=== PATIENT | male | born 1990 | race Caucasian/White ===

== ENCOUNTER 2016-12-14 17:02 | Emergency (ER) | payer SELFPAY ==
--- NOTE | 2016-12-14 18:23 | DIAGNOSTIC IMAGING REPORT ---
PROCEDURE: XR FINGER - LEFT INDICATION: TRAUMA/INJURY TECHNIQUE: A P hand and two views of the left second digit. COMPARISON: None. FINDINGS: Comminuted fracture of the distal tuft of the left index finger. Normal joint spaces. No radiopaque foreign bodies. IMPRESSION: 1. Comminuted fracture left second finger distal tuft
--- NOTE | 2016-12-14 18:51 | ED ORDER SUMMARY ---
..... Patient: TIFFANY LEDEZMA OrderSheet [facility] VisitID: [id number] [place] [address] 26y, M Registration Date/Time: 12/14/2016 ORDER SHEET Weight: 81.6 kg (stated) Allergies: No Known Drug Allergy GENERAL ORDERS: Finger Left (2) Urgent (17:31 12/14/2016 HBivens A.R.N.P.) (Ack 17:43 TBergley) (19:06 RFay) Splint (Finger) (Left) (Index) (4 prong if we have it) (18:44 12/14/2016 HBivens A.R.N.P.) (Ack 18:49 TBergley) (19:16 LSullivan R.N.) Dress Wounds (18:44 12/14/2016 HBivens A.R.N.P.) (Ack 18:49 TBergley) (19:16 LSullivan R.N.) MEDICATION ORDERS: Tdap IM 0.5 mL (NOW, per protocol) (17:27 12/14/2016 LSullivan R.N. per protocol) (17:29 LSullivan R.N.) Ancef IM 1 gm (NOW) (18:43 12/14/2016 HBivens A.R.N.P.) (19:00 LSullivan R.N.) IV FLUIDS: ORDER SHEET NOTES: [Electronically signed by Laura Pérez R.N. (19:18 12/14/2016)] [Electronically signed by Vanessa Edge.R.N.P. (19:19 12/14/2016)] [Electronically signed by Dalia Lai R.N. (10:41 12/16/2016)] [Electronically locked/signed by Laura Pérez R.N. (19:18 12/14/2016)]
--- NOTE | 2016-12-14 18:51 | ED NURSING NOTES ---
Clinical Report - Nurses [facility] [place] [address] 12/14/2016 17:03 Patient: TIFFANY LEDEZMA TRIAGE Triage time 17:12. Acuity: LEVEL 4. Chief Complaint: INJURY TO LEFT HAND. INJURY TO THE RIGHT INDEX FINGER and LEFT INDEX FINGER. Alert. --17:15 Laura Pérez R.N. 17:10 12/14/16. BP: 142/80. HR: 83. RR: 18. O2 saturation: 96%. Temp: 98.3 F. Pain level now: 02/17. --17:15 Laura Pérez R.N. Weight: 81.6 kg stated. Height/Length: 73 inches Per Patient. BMI: 23.7. --17:14 Laura Pérez R.N. Medications None. --17:14 Laura Pérez R.N. Allergies No Known Drug Allergy. --17:14 Laura Pérez R.N. History Arrived by private vehicle. Historian: patient. Primary physician (none). ( Pt drilled a hole through his index finger, above knuckle area, pt does not think it went through the bone, pt placed dressing on it, and some powder to stop bleeding). This occurred today (at about 11 AM). Treatment STATUARY PAINTER: None. PAST MEDICAL HX: Negative. Tetanus status: more than 5 years ago. SURGERY HX: No history of previous surgery. SOCIAL HX: Light tobacco smoker (cigarette)- less than 1/2 a pack per day. Alcohol use; consumes two beers a week. No drug use. NUTRITIONAL RISK ASSESSMENT: The nutritional risk assessment revealed no deficiencies. --17:15 Laura Pérez R.N. PROBLEMS: no known problems. ADDITIONAL SURGERIES: no known surgeries. Interventions ID band on patient. To room. --17:15 Laura Pérez R.N. PHYSICAL ASSESSMENT 17:15 12/14/16. GENERAL / NEURO / PSYCH: Oriented X 4. Alert. Appears in no acute distress. --17:15 Laura Pérez R.N. NURSING PROGRESS NOTES 17:15 12/14/16. Patient identifiers checked. Call light placed in reach. Bed placed in lowest position. Brakes of bed on. Patient ready for evaluation- chart flagged. --17:15 Laura Pérez R.N. 17:29 12/14/2016 TDAP IM 0.5 mL given. (Lot#: [id number], expiration date: 08/07/2018, [employer] Hand: sanofi pasteur). Confirmed 5 rights. Vaccine information statement provided to the patient. --17:29 Laura Pérez R.N. 17:35 12/14/16. Wound cleansed with water, Betadine and Hibiclens. --17:35 Laura Pérez R.N. 19:00 12/14/2016 Ancef (CeFAZolin Sodium) IM 1 gm given. Given in the left gluteus ofe. Allergies verified and confirmed 5 rights. --19:00 Laura Pérez R.N. 19:04. Applied sterile dressing consisting of gauze, following the application of antibiotic ointment (bacitracin). Secured with tape and tube gauze. --19:18 Laura Pérez R.N. DISPOSITION / DISCHARGE Departure time: 1911. Condition at departure: improved. No learning barriers present. Discharge instructions provided and reviewed with the patient. Reviewed medication(s) information. Prescription(s) given to the patient. Reviewed referral to family practice and an orthopedic surgeon for followup. Verbalized understanding. Written instructions provided. The patient was discharged home. He left the Emergency Department ambulatory and via private vehicle. --19:15 Laura Pérez R.N. 19:12 12/14/16. BP: 121/64. HR: 78. RR: 18. O2 saturation: 99%. Pain level now: 01/17. --19:15 Laura Pérez R.N. ( Aluminum foam splint applied by [employer], taped in place.). --19:19 Laura Pérez R.N. Locked/Released at 12/16/2016 10:41 by Dalia Lai R.N.
--- NOTE | 2016-12-14 18:51 | ED CLINICAL REPORT ---
Clinical Report - Physicians/Mid Levels [facility] [address] [place] [address] 12/14/2016 17:03 Patient: TIFFANY LEDEZMA Time Seen: 17:14; initial patient contact, initial documentation, patient care assumed. Arrived- By private vehicle. Historian- patient. HISTORY OF PRESENT ILLNESS Chief Complaint: Injury to the left index finger. The injury happened today. The patient sustained a puncture wound. (drill). Occurred at home. Patient is not experiencing pain. Patient denies injury to the head or neck. No other injury. ( came in because it continues to bleed, wound washed and bleeding powder used, one side stopped but other side started to ooze again). REVIEW OF SYSTEMS No swelling, tingling, numbness, weakness or foreign body. No skin laceration. All systems otherwise negative, except as recorded above. PAST HISTORY Negative. The patient's dominant hand is the right. Last tetanus immunization was more than 5 years ago. SOCIAL HISTORY Light tobacco smoker. Regular alcohol use; consumes two beers a week. No drug use. No recent travel. Is a local resident. FAMILY HISTORY No significant family medical history. ADDITIONAL NOTES The nursing notes have been reviewed with agreement regarding the chief complaint, HPI, ROS, PMH and patient medications and allergies. PHYSICAL EXAM Vital Signs: 12/14/2016 17:10 BP: 142/80. HR: 83. RR: 18. O2 saturation: 96%. Temp: 98.3 F. Pain level now: 4/10. Have been reviewed as normal and appear to be correct. Appearance: Alert. Oriented X3. No acute distress. Head: Head atraumatic. Eyes: Pupils equal, round and reactive to light. Eyes normal inspection. Respiratory: No respiratory distress. Skin: Skin warm and dry. Skin intact. Extremities: Hand injury present. Tip of left index finger: multiple puncture wounds (entry wound on finger pad, exit wound thru lateral side of nail bed, quick powder noted on wound). No erythema, tenderness, swelling, laceration of tip of left index finger or foreign body. No subungual hematoma, nail avulsion, exposed bone or loss of the nail bed on the left index finger or tip amputation of the left index finger. No wrist injury. Hand and wrist exam otherwise negative. Extremities otherwise negative. Neuro, Vascular and Tendons: Vascular status intact. Sensation intact. Motor intact. Tendon function intact. Neuro: Oriented X 3. No motor deficit. No sensory deficit. Note: isolated injury to finger. LABS, X-RAYS, AND EKG X-Rays: Left digit(s). Lt UE Digits X-ray: (IMPRESSION: 1. Comminuted fracture left second finger distal tuft Electronically Final signed by:Raul Johns MD 12/14/2016 6:23:10 PM). The X-rays were interpreted by the radiologist and contemporaneously by me. PROGRESS AND PROCEDURES Course of Care: 183. pt still denying any pain. Patient counseled in person regarding the patient's stable condition, test results and diagnosis. 18:38. Differential Diagnosis: Other possible considerations: pw, fb, fx, nail/skin avulsion. Above considerations are based on history, physical exam and X-Ray data. Differential diagnosis was discussed with patient. Disposition: Discharged home in good and improved condition (18:51). Condition: good and stable. CLINICAL IMPRESSION Open nondisplaced distal phalanx fracture of the left index finger. No angulated fracture of the phalanx. Single deep puncture wound to the left index finger. No puncture wound with foreign body present, infected puncture wound or left fingernail injury. Not penetrating into body cavity. Treatment of puncture wound not delayed. INSTRUCTIONS Wear aluminum splint. Protect wound and keep wound area clean. Change dressing twice daily. Soak in warm soapy water twice daily. Apply bacitracin twice daily. Warnings: COMPLICATIONS: Complications from this condition include: possible infection and possible foreign body remaining in the wound. Future problems may include infection. INFECTION: Watch for signs of infection (increasing heat and redness, pus-like drainage, swelling, or increased pain). Return or see your doctor if these signs occur. It is important to follow up with a physician for further evaluation and treatment. INFECTION: Watch for signs of infection (increasing heat and redness, pus-like drainage, swelling, or increased pain). Return or see your doctor if these signs occur. TETANUS: You were given a tetanus shot during your visit. Make a note for future reference. Prescription Medications: Cephalexin 500 mg: take 1 capsule orally every 8 hours for 10 days. No refill. [place] 5 mg / 325 mg tablets: take 1 orally as needed. Dispense ten (10). No refill. Motrin 800 mg tablets: take 1 tablet orally every 8 hours as needed for pain. Dispense thirty (30). No refills. Substitution is permissible. Understanding of the discharge instructions verbalized by patient. Follow-up with: Teodoro Garcia MD, Orthopedic Surgeon, , [address], , [place], [address] Follow up in about three days even if well and for wound check. Call for an appointment. Summary of care provided to patient. (Electronically signed by Vanessa Edge A.R.N.P. 12/14/2016 19:19)
--- NOTE | 2016-12-14 18:51 | ED ORDER SUMMARY ---
..... Patient: TIFFANY LEDEZMA OrderSheet [facility] VisitID: [id number] [place] [address] 26y, M Registration Date/Time: 12/14/2016 ORDER SHEET Weight: 81.6 kg (stated) Allergies: No Known Drug Allergy GENERAL ORDERS: Finger Left (2) Urgent (17:31 12/14/2016 HBivens A.R.N.P.) (Ack 17:43 TBergley) (19:06 RFay) Splint (Finger) (Left) (Index) (4 prong if we have it) (18:44 12/14/2016 HBivens A.R.N.P.) (Ack 18:49 TBergley) (19:16 LSullivan R.N.) Dress Wounds (18:44 12/14/2016 HBivens A.R.N.P.) (Ack 18:49 TBergley) (19:16 LSullivan R.N.) MEDICATION ORDERS: Tdap IM 0.5 mL (NOW, per protocol) (17:27 12/14/2016 LSullivan R.N. per protocol) (17:29 LSullivan R.N.) Ancef IM 1 gm (NOW) (18:43 12/14/2016 HBivens A.R.N.P.) (19:00 LSullivan R.N.) IV FLUIDS: ORDER SHEET NOTES: [Electronically signed by Laura Pérez R.N. (19:18 12/14/2016)] [Electronically signed by Vanessa Edge.R.N.P. (19:19 12/14/2016)] [Electronically signed by Dalia Lai R.N. (10:41 12/16/2016)] [Electronically locked/signed by Laura Pérez R.N. (19:18 12/14/2016)]
--- NOTE | 2016-12-14 18:51 | ED NURSING NOTES ---
Clinical Report - Nurses [facility] [place] [address] 12/14/2016 17:03 Patient: TIFFANY LEDEZMA TRIAGE Triage time 17:12. Acuity: LEVEL 4. Chief Complaint: INJURY TO LEFT HAND. INJURY TO THE RIGHT INDEX FINGER and LEFT INDEX FINGER. Alert. --17:15 Laura Pérez R.N. 17:10 12/14/16. BP: 142/80. HR: 83. RR: 18. O2 saturation: 96%. Temp: 98.3 F. Pain level now: 02/17. --17:15 Laura Pérez R.N. Weight: 81.6 kg stated. Height/Length: 73 inches Per Patient. BMI: 23.7. --17:14 Laura Pérez R.N. Medications None. --17:14 Laura Pérez R.N. Allergies No Known Drug Allergy. --17:14 Laura Pérez R.N. History Arrived by private vehicle. Historian: patient. Primary physician (none). ( Pt drilled a hole through his index finger, above knuckle area, pt does not think it went through the bone, pt placed dressing on it, and some powder to stop bleeding). This occurred today (at about 11 AM). Treatment WORK FORCE ADVISOR: None. PAST MEDICAL HX: Negative. Tetanus status: more than 5 years ago. SURGERY HX: No history of previous surgery. SOCIAL HX: Light tobacco smoker (cigarette)- less than 1/2 a pack per day. Alcohol use; consumes two beers a week. No drug use. NUTRITIONAL RISK ASSESSMENT: The nutritional risk assessment revealed no deficiencies. --17:15 Laura Pérez R.N. PROBLEMS: no known problems. ADDITIONAL SURGERIES: no known surgeries. Interventions ID band on patient. To room. --17:15 Laura Pérez R.N. PHYSICAL ASSESSMENT 17:15 12/14/16. GENERAL / NEURO / PSYCH: Oriented X 4. Alert. Appears in no acute distress. --17:15 Laura Pérez R.N. NURSING PROGRESS NOTES 17:15 12/14/16. Patient identifiers checked. Call light placed in reach. Bed placed in lowest position. Brakes of bed on. Patient ready for evaluation- chart flagged. --17:15 Laura Pérez R.N. 17:29 12/14/2016 TDAP IM 0.5 mL given. (Lot#: [id number], expiration date: 08/07/2018, [employer] Actor: sanofi pasteur). Confirmed 5 rights. Vaccine information statement provided to the patient. --17:29 Laura Pérez R.N. 17:35 12/14/16. Wound cleansed with water, Betadine and Hibiclens. --17:35 Laura Pérez R.N. 19:00 12/14/2016 Ancef (CeFAZolin Sodium) IM 1 gm given. Given in the left gluteus ofe. Allergies verified and confirmed 5 rights. --19:00 Laura Pérez R.N. 19:04. Applied sterile dressing consisting of gauze, following the application of antibiotic ointment (bacitracin). Secured with tape and tube gauze. --19:18 Laura Pérez R.N. DISPOSITION / DISCHARGE Departure time: 1911. Condition at departure: improved. No learning barriers present. Discharge instructions provided and reviewed with the patient. Reviewed medication(s) information. Prescription(s) given to the patient. Reviewed referral to family practice and an orthopedic surgeon for followup. Verbalized understanding. Written instructions provided. The patient was discharged home. He left the Emergency Department ambulatory and via private vehicle. --19:15 Laura Pérez R.N. 19:12 12/14/16. BP: 121/64. HR: 78. RR: 18. O2 saturation: 99%. Pain level now: 01/17. --19:15 Laura Pérez R.N. ( Aluminum foam splint applied by [email or web address], taped in place.). --19:19 Laura Pérez R.N. Locked/Released at 12/16/2016 10:41 by Dalia Lai R.N.
--- NOTE | 2016-12-16 10:41 | ED MAR SUMMARY ---
..... Medication Administration Record [facility] [address] [place] [address] Patient: TIFFANY LEDEZMA Visit ID: [id number] 26y, M Weight: 81.6 kg Height/Length: 73 in BMI: 23.7 ALLERGIES: No Known Drug Allergy Given 17:29 12/14/2016 Laura Pérez, RJessicaN. Medication Administered: TDAP [IM], Dose: 0.5 mL IM. Medication Ordered: Tdap IM 0.5 mL (NOW, per protocol). Given 19:00 12/14/2016 Laura Pérez, R.N. Medication Administered: ANCEF [IM] (CEFAZOLIN SODIUM), Dose: 1 gm IM. Medication Ordered: Ancef IM 1 gm (NOW).
--- NOTE | 2016-12-16 10:41 | ED MAR SUMMARY ---
..... Medication Administration Record [facility] [address] [place] [address] Patient: TIFFANY LEDEZMA Visit ID: [id number] 26y, M Weight: 81.6 kg Height/Length: 73 in BMI: 23.7 ALLERGIES: No Known Drug Allergy Given 17:29 12/14/2016 Laura Pérez, RJessicaN. Medication Administered: TDAP [IM], Dose: 0.5 mL IM. Medication Ordered: Tdap IM 0.5 mL (NOW, per protocol). Given 19:00 12/14/2016 Laura Pérez, R.N. Medication Administered: ANCEF [IM] (CEFAZOLIN SODIUM), Dose: 1 gm IM. Medication Ordered: Ancef IM 1 gm (NOW).
--- NOTE | 2016-12-16 10:41 | ED DISCHARGE INSTRUCTIONS ---
Patient: TIFFANY LEDEZMA General Instructions [facility] VisitID: [id number] [place] [address] 26y, M Registration Date/Time: 12/14/2016 Open nondisplaced distal phalanx fracture of the left index finger. No angulated fracture of the phalanx. Single deep puncture wound to the left index finger. No puncture wound with foreign body present, infected puncture wound or left fingernail injury. Not penetrating into body cavity. Treatment of puncture wound not delayed. INSTRUCTIONS Wear aluminum splint. Protect wound and keep wound area clean. Change dressing twice daily. Soak in warm soapy water twice daily. Apply bacitracin twice daily. Warnings: COMPLICATIONS: Complications from this condition include: possible infection and possible foreign body remaining in the wound. Future problems may include infection. INFECTION: Watch for signs of infection (increasing heat and redness, pus-like drainage, swelling, or increased pain). Return or see your doctor if these signs occur. It is important to follow up with a physician for further evaluation and treatment. INFECTION: Watch for signs of infection (increasing heat and redness, pus-like drainage, swelling, or increased pain). Return or see your doctor if these signs occur. TETANUS: You were given a tetanus shot during your visit. Make a note for future reference. Prescription Medications: Cephalexin 500 mg: take 1 capsule orally every 8 hours for 10 days. No refill. [place] 5 mg / 325 mg tablets: take 1 orally as needed. Dispense ten (10). No refill. Motrin 800 mg tablets: take 1 tablet orally every 8 hours as needed for pain. Dispense thirty (30). No refills. Substitution is permissible. Understanding of the discharge instructions verbalized by patient. Follow-up with: Teodoro Garcia MD, Orthopedic Surgeon, , [id number], , [place] [phone] Follow up in about three days even if well and for wound check. Call for an appointment. Summary of care provided to patient. ADDITIONAL INFORMATION Puncture Wound (General) A puncture wound is a hole through the skin. Bacteria, dirt and debris can be drawn into this wound, increasing the risk of infection. However, antibiotics are usually not prescribed for this injury unless signs of infection are already present. Therefore, it is important to observe the wound closely for the signs of infection listed below. Home Care: If your wound is on an arm, hand, leg, or foot, keep that part raised during the first 48 hours to reduce swelling and pain. Keep the wound clean and dry. If a bandage was applied and it becomes wet or dirty, replace it. Otherwise, leave it in place for the next 24 hours. You may use acetaminophen (Tylenol) or ibuprofen (Motrin, Advil) to control pain, unless another medicine was prescribed. [NOTE: If you have chronic liver or kidney disease or ever had a stomach ulcer or GI bleeding, talk with your doctor before using these medicines.] You may shower as usual. However, do not soak the area in water (no baths or swimming) during the first 48 hours. Follow Up: Most puncture wounds heal within 10 days. However, an infection may sometimes occur despite proper treatment. If small particles were drawn into the puncture wound (such as fragments of cloth, rubber, wood or dirt), an infection may occur. These fragments are very hard to find during the first exam since it is not possible to get a good look inside a puncture wound and they do not show on an X-ray. Antibiotics and a minor surgical procedure to find and remove the foreign object will be needed if this happens. Therefore, check the wound daily for the warning signs listed below. Get Prompt Medical Attention if any of the following occur: SIGNS OF INFECTION: Increasing pain in the wound Redness, swelling, pus or red lines coming from the wound Fever of 100.4F (38C) or higher, or as directed by your healthcare provider Fracture:Finger [Open] You have a fracture of your finger (broken finger) with a nearby cut, puncture or deep scrape. This causes local pain, swelling and bruising. Because of the open injury, there is a risk of infection in the skin and bone. Antibiotics will be used to lower the risk of infection. This injury takes about four weeks to heal. Finger injuries are often treated with a splint, cast or by taping the injured finger to the next one ("daiana taping"). This protects the injured finger and holds the bone in position while it heals. More serious fractures may require surgery. If the FINGERNAIL has been severely injured, it will probably fall off in 1-2 weeks. A new fingernail will usually start to grow back within a month. Home Care: Keep your hand elevated to reduce pain and swelling. When sitting or lying down elevate your arm above the level of your heart. You can do this by placing your arm on a pillow that rests on your chest or on a pillow at your side. This is most important during the first 48 hours after injury. Apply an ice pack (ice cubes in a plastic bag, wrapped in a towel) over the injured area for 20 minutes every 1-2 hours the first day for pain relief. Continue this 3-4 times a day until the pain and swelling goes away. Keep the cast/splint completely dry at all times. Bathe with your cast/splint out of the water, protected with a large plastic bag, rubber-banded at the top end. If a fiberglass cast/splint gets wet, you can dry it with a hair-dryer. If daiana tape was applied and it becomes wet or dirty, change it. You may replace it with paper, plastic or cloth tape. Cloth tape and paper tapes must be kept dry. Keep the daiana tape in place for at least four weeks. You may use acetaminophen (Tylenol) or ibuprofen (Motrin, Advil) to control pain, unless another pain medicine was prescribed. [ NOTE : If you have chronic liver or kidney disease or ever had a stomach ulcer or GI bleeding, talk with your doctor before using these medicines.] Take all antibiotics until finished. Follow Up with your doctor within one week, or as advised by our staff, to be sure the bone is healing properly, . [NOTE: A radiologist will review any X-rays that were taken. We will notify you of any new findings that may affect your care.] Return Promptly or contact your doctor if any of the following occur: The plaster cast or splint becomes wet or soft The fiberglass cast or splint remains wet for more than 24 hours Pain or swelling increase Finger becomes cold, blue, numb or tingly Redness, warmth, swelling, drainage from the wound or foul odor from a cast or splint Fever of 100.4F (38C) or higher, or as directed by your healthcare provider Diphtheria Toxoid Adsorbed, Tetanus Toxoid, Adsorbed Suspension for injection What is this medicine? DIPHTHERIA AND TETANUS TOXOIDS ADSORBED (dif THEER ee uh and TET n us TOK soids ad SAWRB) is a vaccine. It is used to prevent infections of diphtheria and tetanus ([place]). How should I use this medicine? This vaccine is for injection into a muscle. It is given by a health direct support professional caregiver. A copy of Vaccine Information Statements will be given before each vaccination. Read this sheet carefully each time. The sheet may change frequently. Talk to your attorney general regarding the use of this medicine in children. While this drug may be prescribed for selected conditions, precautions do apply. What side effects may I notice from receiving this medicine? Side effects that you should report to your doctor or health direct support professional caregiver as soon as possible: allergic reactions like skin rash, itching or hives, swelling of the face, lips, or tongue arthritis pain breathing problems changes in hearing extreme changes in behavior fast, irregular heartbeat fever over 100 degrees F pain, tingling, numbness in the hands or feet seizures unusually weak or tired Side effects that usually do not require medical attention (report to your doctor or health direct support professional caregiver if they continue or are bothersome): aches or pains bruising, pain, swelling at site where injected headache loss of appetite low-grade fever of 100 degrees F or less nausea, vomiting sleepy swollen glands What may interact with this medicine? adalimumab anakinra infliximab live vaccines medicines that suppress your immune system medicines to treat cancer medicines that treat or prevent blood clots like daily aspirin, enoxaparin, heparin, ticlopidine, warfarin radiopharmaceuticals like iodine I-125 or I-131 What if I miss a dose? Keep appointments for follow-up (booster) doses as directed. It is important not to miss your dose. Call your doctor or health direct support professional caregiver if you are unable to keep an appointment. Where should I keep my medicine? This drug is given in a hospital or clinic and will not be stored at home. What should I tell my health care provider before I take this medicine? They need to know if you have any of these conditions: bleeding disorder immune system problems infection with fever low levels of platelets in the blood an unusual or allergic reaction to diphtheria or tetanus toxoid, latex, thimerosal, other medicines, foods, dyes, or preservatives or trying to get breast-feeding What should I watch for while using this medicine? Contact your doctor or health direct support professional caregiver and seek emergency medical care if any serious side effects occur. This vaccine, like all vaccines, may not fully protect everyone. Cephalexin Monohydrate Oral tablet What is this medicine? CEPHALEXIN (sef a JASON in) is a cephalosporin antibiotic. It is used to treat certain kinds of bacterial infections It will not work for colds, flu, or other viral infections. How should I use this medicine? Take this medicine by mouth with a full glass of water. Follow the directions on the prescription label. This medicine can be taken with or without food. Take your medicine at regular intervals. Do not take your medicine more often than directed. Take all of your medicine as directed even if you think you are better. Do not skip doses or stop your medicine early. Talk to your attorney general regarding the use of this medicine in children. While this drug may be prescribed for selected conditions, precautions do apply. What side effects may I notice from receiving this medicine? Side effects that you should report to your doctor or health direct support professional caregiver as soon as possible: allergic reactions like skin rash, itching or hives, swelling of the face, lips, or tongue breathing problems pain or trouble passing urine redness, blistering, peeling or loosening of the skin, including inside the mouth severe or watery diarrhea unusually weak or tired yellowing of the eyes, skin Side effects that usually do not require medical attention (report to your doctor or health direct support professional caregiver if they continue or are bothersome): gas or heartburn genital or anal irritation headache joint or muscle pain nausea, vomiting What may interact with this medicine? probenecid some other antibiotics What if I miss a dose? If you miss a dose, take it as soon as you can. If it is almost time for your next dose, take only that dose. Do not take double or extra doses. There should be at least 4 to 6 hours between doses. Where should I keep my medicine? Keep out of the reach of children. Store at room temperature between 59 and 86 degrees F (15 and 30 degrees C). Throw away any unused medicine after the expiration date. What should I tell my health care provider before I take this medicine? They need to know if you have any of these conditions: kidney disease stomach or intestine problems, especially colitis an unusual or allergic reaction to cephalexin, other cephalosporins, penicillins, other antibiotics, medicines, foods, dyes or preservatives or trying to get breast-feeding What should I watch for while using this medicine? Tell your doctor or health direct support professional caregiver if your symptoms do not begin to improve in a few days. Do not treat diarrhea with over the counter products. Contact your doctor if you have diarrhea that lasts more than 2 days or if it is severe and watery. If you have diabetes, you may get a false-positive result for sugar in your urine. Check with your doctor or health direct support professional caregiver. Hydrocodone Bitartrate, Acetaminophen Oral tablet What is this medicine? ACETAMINOPHEN; HYDROCODONE (a set a BETSY wili fen; tim droe KOE done) is a pain reliever. It is used to treat mild to moderate pain. How should I use this medicine? Take this medicine by mouth. Swallow it with a full glass of water. Follow the directions on the prescription label. If the medicine upsets your stomach, take the medicine with food or milk. Do not take more than you are told to take. Talk to your attorney general regarding the use of this medicine in children. This medicine is not approved for use in children. What side effects may I notice from receiving this medicine? Side effects that you should report to your doctor or health direct support professional caregiver as soon as possible: allergic reactions like skin rash, itching or hives, swelling of the face, lips, or tongue breathing problems confusion feeling faint or lightheaded, falls stomach pain yellowing of the eyes or skin Side effects that usually do not require medical attention (report to your doctor or health direct support professional caregiver if they continue or are bothersome): nausea, vomiting stomach upset What may interact with this medicine? alcohol antihistamines isoniazid medicines for depression, anxiety, or psychotic disturbances medicines for sleep muscle relaxants naltrexone narcotic medicines (opiates) for pain phenobarbital ritonavir tramadol What if I miss a dose? If you miss a dose, take it as soon as you can. If it is almost time for your next dose, take only that dose. Do not take double or extra doses. Where should I keep my medicine? Keep out of the reach of children. This medicine can be abused. Keep your medicine in a safe place to protect it from theft. Do not share this medicine with anyone. Selling or giving away this medicine is dangerous and against the law. Store at room temperature between 15 and 30 degrees C (59 and 86 degrees F). Protect from light. Keep container tightly closed. Throw away any unused medicine after the expiration date. Discard unused medicine and used packaging carefully. Pets and children can be harmed if they find used or lost packages. What should I tell my health care provider before I take this medicine? They need to know if you have any of these conditions: brain tumor Crohn's disease, inflammatory bowel disease, or ulcerative colitis drink more than 3 alcohol-containing drinks per day drug abuse or addiction head injury heart or circulation problems kidney disease or problems going to the bathroom liver disease lung disease, asthma, or breathing problems an unusual or allergic reaction to acetaminophen, hydrocodone, other opioid analgesics, other medicines, foods, dyes, or preservatives or trying to get breast-feeding What should I watch for while using this medicine? Tell your doctor or health direct support professional caregiver if your pain does not go away, if it gets worse, or if you have new or a different type of pain. You may develop tolerance to the medicine. Tolerance means that you will need a higher dose of the medicine for pain relief. Tolerance is normal and is expected if you take the medicine for a long time. Do not suddenly stop taking your medicine because you may develop a severe reaction. Your body becomes used to the medicine. This does NOT mean you are addicted. Addiction is a behavior related to getting and using a drug for a non-medical reason. If you have pain, you have a medical reason to take pain medicine. Your doctor will tell you how much medicine to take. If your doctor wants you to stop the medicine, the dose will be slowly lowered over time to avoid any side effects. You may get drowsy or dizzy when you first start taking the medicine or change doses. Do not drive, use machinery, or do anything that may be dangerous until you know how the medicine affects you. Stand or sit up slowly. There are different types of narcotic medicines (opiates) for pain. If you take more than one type at the same time, you may have more side effects. Give your health care provider a list of all medicines you use. Your doctor will tell you how much medicine to take. Do not take more medicine than directed. Call emergency for help if you have problems breathing. The medicine will cause constipation. Try to have a bowel movement at least every 2 to 3 days. If you do not have a bowel movement for 3 days, call your doctor or health direct support professional caregiver. Too much acetaminophen can be very dangerous. Do not take Tylenol (acetaminophen) or medicines that contain acetaminophen with this medicine. Many non-prescription medicines contain acetaminophen. Always read the labels carefully. Ibuprofen Oral tablet What is this medicine? IBUPROFEN (eye BYOO proe fen) is a non-steroidal anti-inflammatory drug (NSAID). It is used for dental pain, fever, headaches or migraines, osteoarthritis, rheumatoid arthritis, or painful monthly periods. It can also relieve minor aches and pains caused by a cold, flu, or sore throat. How should I use this medicine? Take this medicine by mouth with a glass of water. Follow the directions on the prescription label. Take this medicine with food if your stomach gets upset. Try to not lie down for at least 10 minutes after you take the medicine. Take your medicine at regular intervals. Do not take your medicine more often than directed. A special MedGuide will be given to you by the pharmacist with each prescription and refill. Be sure to read this information carefully each time. Talk to your attorney general regarding the use of this medicine in children. Special care may be needed. What side effects may I notice from receiving this medicine? Side effects that you should report to your doctor or health direct support professional caregiver as soon as possible: allergic reactions like skin rash, itching or hives, swelling of the face, lips, or tongue black or bloody stools, blood in the urine or in vomit breathing problems changes in vision chest pain general ill feeling or flu-like symptoms nausea or vomiting redness, blistering, peeling or loosening of the skin, including inside the mouth slurred speech or weakness on one side of the body stomach pain unexplained weight gain or swelling unusually weak or tired yellowing of eyes or skin Side effects that usually do not require medical attention (report to your doctor or health direct support professional caregiver if they continue or are bothersome): constipation or diarrhea dizziness gas or heartburn stomach upset What may interact with this medicine? Do not take this medicine with any of the following medications: cidofovir ketorolac methotrexate pemetrexed This medicine may also interact with the following medications: alcohol aspirin diuretics lithium other drugs for inflammation like prednisone warfarin What if I miss a dose? If you miss a dose, take it as soon as you can. If it is almost time for your next dose, take only that dose. Do not take double or extra doses. Where should I keep my medicine? Keep out of the reach of children. Store at room temperature between 15 and 30 degrees C (59 and 86 degrees F). Keep container tightly closed. Throw away any unused medicine after the expiration date. What should I tell my health care provider before I take this medicine? They need to know if you have any of these conditions: asthma cigarette smoker drink more than 3 alcohol containing drinks a day heart disease or circulation problems such as heart failure or leg edema (fluid retention) high blood pressure kidney disease liver disease stomach bleeding or ulcers an unusual or allergic reaction to ibuprofen, aspirin, other NSAIDS, other medicines, foods, dyes, or preservatives or trying to get breast-feeding What should I watch for while using this medicine? Tell your doctor or healthcare professional if your symptoms do not start to get better or if they get worse. This medicine does not prevent heart attack or stroke. In fact, this medicine may increase the chance of a heart attack or stroke. The chance may increase with longer use of this medicine and in people who have heart disease. If you take aspirin to prevent heart attack or stroke, talk with your doctor or health direct support professional caregiver. Do not take other medicines that contain aspirin, ibuprofen, or naproxen with this medicine. Side effects such as stomach upset, nausea, or ulcers may be more likely to occur. Many medicines available without a prescription should not be taken with this medicine. This medicine can cause ulcers and bleeding in the stomach and intestines at any time during treatment. Ulcers and bleeding can happen without warning symptoms and can cause . To reduce your risk, do not smoke cigarettes or drink alcohol while you are taking this medicine. You may get drowsy or dizzy. Do not drive, use machinery, or do anything that needs mental alertness until you know how this medicine affects you. Do not stand or sit up quickly, especially if you are an older patient. This reduces the risk of dizzy or fainting spells. This medicine can cause you to bleed more easily. Try to avoid damage to your teeth and gums when you brush or floss your teeth. You have been given the following additional information: Puncture Wound, General Fracture, Finger (Open) Diphtheria Toxoid Adsorbed, Tetanus Toxoid, Adsorbed Suspension for injection Cephalexin Monohydrate Oral tablet Hydrocodone Bitartrate, Acetaminophen Oral tablet Ibuprofen Oral tablet (Electronically signed by Vanessa Edge A.R.N.P. 12/14/2016 19:19)
--- NOTE | 2016-12-16 10:42 | ED MED RECONCILIATION SUMMARY ---
Patient: TIFFANY LEDEZMA Medication Reconciliation Report [facility] VisitID: [id number] [place] [address] 26y, M Registration Date/Time: 12/14/2016 Weight: 81.6 kg Height/Length: 73 in. BMI: 23.7 ALLERGIES: No Known Drug Allergy The patient's Home Medications are listed below: NONE. The source(s) of the original Home Medication information: Not obtained. The following Medications were given to the patient in the Emergency Department: TDAP [IM] IM 0.5 mL, administered: 12/14/2016 5:29:00 PM Ancef [IM] IM 1 gm, administered: 12/14/2016 7:00:00 PM The following Medications were prescribed to the patient: Cephalexin 500 mg: take 1 capsule orally every 8 hours for 10 days. No refill. -- Vanessa Edge A.R.N.P. [place] 5 mg / 325 mg tablets: take 1 orally as needed. Dispense ten (10). No refill. -- Vanessa Edge A.R.N.P. Motrin 800 mg tablets: take 1 tablet orally every 8 hours as needed for pain. Dispense thirty (30). No refills. Substitution is permissible. -- Vanessa Edge A.R.N.P.
--- NOTE | 2016-12-16 10:42 | ED MED RECONCILIATION SUMMARY ---
Patient: TIFFANY LEDEZMA Medication Reconciliation Report [facility] VisitID: [id number] [place] [address] 26y, M Registration Date/Time: 12/14/2016 Weight: 81.6 kg Height/Length: 73 in. BMI: 23.7 ALLERGIES: No Known Drug Allergy The patient's Home Medications are listed below: NONE. The source(s) of the original Home Medication information: Not obtained. The following Medications were given to the patient in the Emergency Department: TDAP [IM] IM 0.5 mL, administered: 12/14/2016 5:29:00 PM Ancef [IM] IM 1 gm, administered: 12/14/2016 7:00:00 PM The following Medications were prescribed to the patient: Cephalexin 500 mg: take 1 capsule orally every 8 hours for 10 days. No refill. -- Vanessa Edge A.R.N.P. [place] 5 mg / 325 mg tablets: take 1 orally as needed. Dispense ten (10). No refill. -- Vanessa Edge A.R.N.P. Motrin 800 mg tablets: take 1 tablet orally every 8 hours as needed for pain. Dispense thirty (30). No refills. Substitution is permissible. -- Vanessa Edge A.R.N.P.
== END 2016-12-14 19:12 | disposition home or self-care (01) ==
LOC: ED SRH 17:02
DX: S62.661B Nondisplaced fracture of distal phalanx of left index finger, initial encounter for open fracture (principal); S61.231A Puncture wound without foreign body of left index finger without damage to nail, initial encounter; W31.2XXA Contact with powered woodworking and forming machines, initial encounter; Y93.9 Activity, unspecified; Y92.009 Unspecified place in unspecified non-institutional (private) residence as the place of occurrence of the external cause; Y99.9 Unspecified external cause status; F17.210 Nicotine dependence, cigarettes, uncomplicated